=== PATIENT | male | born 1960 | race Caucasian/White ===

== ENCOUNTER → 2021-02-04 | Outpatient (CLI) | payer OTHER ==
--- NOTE | 2021-02-04 09:10 | KCIC ---
CT for coronary artery calcium scoring without IV contrast 02/04/2021 CLINICAL HISTORY: Family history of heart disease. TECHNIQUE: Unenhanced, contiguous, 3 mm axial sections were obtained through the heart with the field -of-view limited to the heart. One or more of the following individualized dose reduction techniques were utilized for this study: 1. Automated exposure control. 2. Adjustment of the mA and/or kV according to patient size. 3. Use of iterative reconstruction technique. Findings: Visual inspection of the coronary arteries demonstrate two focal areas of calcified plaque involving the left anterior descending artery. A 1 cm calcified granuloma is seen involving the left upper lobe. Small calcified left hilar lymph nodes are seen. The visualized lungs are clear. The computer generated calcium scoring utilizing [id number]-130 criteria are as as follows: Left main artery 0 Left anterior descending artery 7.7 Left circumflex artery 0 Right coronary artery 0 The total calcium score is 7.7 Table: 0: No plaque is present. The chance of significant heart disease is less than 5 percent and correspon ds to a very low risk for myocardial infarction. 1-10: A small amount of plaque is present the chance of significant heart disease is less than 10 per cent and corresponds to a low risk for myocardial infarction. 11-100: Plaque is present. This correlates with mild heart disease and a moderate risk for myocardial infarction. 101 to 400: A moderate amount of plaque is present. This correlates with heart disease and a moderate to high risk for myocardial infarction. Over 400: A large amount of plaque is present. This correlates with a greater than 90 percent chance of a high-grade stenosis. The risk for myocardial infarction is high. IMPRESSION: The total coronary artery calcium score is 7.7. This corresponds to a low risk for a myoc ardial infarction. Electronically signed by: Nader Shields MD (02/04/2021 9:07 AM) [id number]
== END ==
LOC: KCIC 08:29
PROVIDERS: ATTEND Physician Assistant Medical
DX: Z13.6 Encounter for screening for cardiovascular disorders (principal); J84.10 Pulmonary fibrosis, unspecified; I21.9 Acute myocardial infarction, unspecified; I51.9 Heart disease, unspecified; I70.8 Atherosclerosis of other arteries
CPT/HCPCS: 75571